=== PATIENT | female | born 1995 | race Caucasian/White ===

== ENCOUNTER 2017-09-22 16:08 | Emergency (ER) | payer OTHER ==
[~2017-09-22] VITALS: Ht 154.9 cm; Wt 56.7 kg
[~2017-09-22 16:08] MED LIST: IMPLANON68 MG; NAPROXEN250 M1 PO; NAPROXEN500 M1 PO; PREDNISONE 20MG20 MG PO; PROVENTIL0.09 MG/A1 INH; ZITHROMAX Z-PA250 M1 PO
[2017-09-22 16:26] VITALS: BP 133/78
--- NOTE | 2017-09-22 16:27 | ED INFLUENZA/URI COMPLAINT ---
History of Present Illness General Chief Complaint: Upper Respiratory Sx/Fever Stated Complaint: COUGH; FEVER Source: patient, old records Exam Limitations: no limitations Vital Signs & Intake/Output Vital Signs & Intake/Output Vital Signs Date Time Temp Pulse Resp B/P B/P Pulse O2 O2 Flow FiO2 Mean Ox Delivery Rate 09/22 1626 97.5 89 16 133/78 98 Room Air Room Air Allergies Coded Allergies: No Known Allergies (09/22/17) Reconcile Medications Albuterol Sulfate (Proair Hfa) 90 MCG HFA.AER.AD 2 PUF INH Q4-6 PRN PRN WHEEZING Codeine Phosphate/Guaifenesi (Guaifen-Codeine 100-10 MG/5 Ml) 10 MG-100 MG/5 ML LIQUID 10 ML PO Q6HR PRN COUGH Etonogestrel (Implanon) 68 MG IMPLANT CONTROL-LEFT ARM (Reported) Naproxen 250 MG TABLET 1 TAB PO BID PRN PAIN Ondansetron (Zofran Odt) 4 MG TAB.RAPDIS 1 TAB SL TID PRN NAUSEA Oseltamivir Phosphate (Tamiflu) 75 MG CAPSULE 1 CAP PO BID VIRAL SYNDROME Triage Note: PT TO TRIAGE WITH COUGH, N/V/D, COUGH, FEVERS AND WEAKNESS STARTING 3 DAYS AGO Triage Nurses Notes Reviewed? yes Onset: Abrupt Duration: week(s): (3), constant Timing: recent history Severity: moderate Severity Numbers: 5 Prior Episodes/Possible Cause: occassional episodes No Modifying Factors: none Associated Symptoms: cough, fever/chills, sore throat HPI: 22 year old female active smoker with no medical history presents to the er c/o coat padder cough, sore throat, generalized body aches, fever, chills nv at home x 3 days. no sick contacts or recent travel. she has been taking otc meds and her mothers nebulizer without improvement. no cp, no sob, abd pain, diarrhea. no rashes to skin, no gu sx. she is not sure if she got a flu shot. (Pilo Huff) Past History Travel History Traveled to [place] past 21 day No Medical History Any Pertinent Medical History? none Neurological: NONE EENT: NONE Cardiovascular: NONE Respiratory: NONE Gastrointestinal: NONE Hepatic: NONE Renal: NONE Musculoskeletal: NONE Psychiatric: NONE Endocrine: NONE Surgical History Surgical History: non-contributory Psychosocial History What is your primary language E[place]rean Tobacco Use: Current Daily Use Family History Hx Contributory? No (Pilo Huff) Review of Systems Review of Systems Constitutional: Reports: see HPI. EENTM: Reports: nasal congestion, throat pain. Respiratory: Reports: cough. Denies: hemoptysis, short of breath, wheezing. Cardiovascular: Denies: no symptoms. GI: Reports: nausea, vomiting. Denies: diarrhea. Genitourinary: Denies: no symptoms. Musculoskeletal: Reports: see HPI (BODYACHES). Skin: Denies: no symptoms. Neurological/Psychological: Denies: no symptoms. Hematologic/Endocrine: Denies: bruising. Immunologic/Allergic: Denies: no symptoms. All Other Systems: Reviewed and Negative (Pilo Huff) Physical Exam Physical Exam General Appearance: well developed/nourished, no apparent distress, alert Head: atraumatic, normal appearance Eyes: Bilateral: normal appearance, PERRL, EOMI. Ears, Nose, Throat: moist mucous membrane, hearing grossly normal, nasal congestion, nasal drainage Neck: normal inspection Respiratory: normal breath sounds, chest non-tender, no respiratory distress Cardiovascular: regular rate/rhythm Gastrointestinal: soft, non-tender Extremities: normal range of motion Neurologic/Psych: no motor/sensory deficits, awake, alert, oriented x 3, normal gait Skin: intact, normal color, warm/dry Lymphatic: no anterior cervical monique Core Measures Sepsis Present: No Sepsis Focused Exam Completed? No (Pilo Huff) Progress Differential Diagnosis: influenza, otitis, pneumonia, pharyngitis, sinusitis Plan of Care: Orders Procedure Date/time Status RAPID VIRAL INFLUENZA A 09/22 1610 Complete Microbiology 09/22 1625 NASOPHARYN: Influenza Virus A & B Rapid Smear - COMP She is speaking in full complete sentences present no respiratory distress at this time. I discussed with the patient at length all of their results. I had an extensive conversation regarding need for close follow up with their primary care physician this week as well as return precautions. I answered all of their questions, they feel comfortable with the plan and follow-up care. I discussed with the patient/family the medications that they will receive. I gave them signs and symptoms that could indicate an adverse reaction. I have advised them to limit their activities until they can see how they respond to the medication. Initial ED EKG: none (Pilo Huff) Departure Departure Time of Disposition: 1814 Disposition: HOME OR SELF CARE Condition: Stable Clinical Impression Primary Impression: Viral syndrome Referrals: Patrick Mccormack MD (PCP/Family) Additional Instructions: Follow up with your pmd. rest, drink plenty of fluids. interchange tylenol and motrin every 4-6 hours. tamiflu for symptoms, zofran for nausea, robitussin with codeine for cough- this may make you drowsy. proair inhaler for shortness of breath. return at anytime sooner with any concerns Departure Forms: Customer Survey General Discharge Information Prescriptions: Current Visit Scripts Codeine Phosphate/Guaifenesi (Guaifen-Codeine 100-10 MG/5 Ml) 10 ML PO Q6HR PRN COUGH #150 ML Ondansetron (Zofran Odt) 1 TAB SL TID PRN NAUSEA #10 TAB Albuterol Sulfate (Proair Hfa) 2 PUF INH Q4-6 PRN PRN WHEEZING #1 INHAL Oseltamivir Phosphate (Tamiflu) 1 CAP PO BID #10 CAP (Pilo Huff) PA/THIRD GRADE TEACHER Co-Sign Statement Statement: ED Attending supervision documentation- [] I saw and evaluated the patient. I have also reviewed all the pertinent lab results and diagnostic results. I agree with the findings and the plan of care as documented in the PA's/THIRD GRADE TEACHER's documentation. [X] I have reviewed the ED Record and agree with the PA's/THIRD GRADE TEACHER's documentation. [] Additions or exceptions (if any) to the PAs/THIRD GRADE TEACHER's note and plan are summarized below: [] (Emil Askew DO
[2017-09-22] MEDS ORDERED: GUAIFEN-CODEIN118 M1 PO (18:17)
[2017-09-22] MEDS ORDERED: ZOFRAN ODT4 M1 SL (18:17)
[2017-09-22] MEDS ORDERED: PROAIR HFA8.5 GM INH (18:17)
[2017-09-22] MEDS ORDERED: TAMIFLU75 M1 PO (18:17)
== END 2017-09-22 19:13 ==
LOC: ERH 16:08
DX: B34.9 Viral infection, unspecified (principal)
CPT/HCPCS: 87804; 87804-59